=== PATIENT | male | born 2000 | race Caucasian/White ===

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

== ENCOUNTER 2022-05-03 08:13 | Outpatient (CLI) | payer BC, SELFPAY ==
--- NOTE | 2022-05-03 08:31 | ECHO_ITS ---
Patient Info Name: Brant Collins Age: 21 years : 2000 Gender: Male Ht: 70 in Wt: 160 lbs BSA: 1.89 m2 HR: 88 bpm BP: 131 / 80 mmHg Technical Quality: Good Exam Date: 05/03/2022 8:59 AM Exam Location: [facility] Pul[facility] Patient Status: Outpatient Admit Date: 05/03/2022 Staff Ordering Physician: Franny Moore NP Information Officer: Jose L Mcintosh RDCS, RT Attending Provider: Kenji León MD Exam Type: CA echo doppler color flow Study Info Indications I10 - Essential (primary) hypertension Complete two-dimensional, color flow and Doppler transthoracic echocardiogram is performed. Strain analysis performed. Summary 1. Complete two-dimensional, color flow and Doppler transthoracic echocardiogram is performed. 2. Left ventricular chamber dimension is normal. 3. Left ventricular systolic function is normal, estimated at 65-70%. 4. The left ventricular diastolic function is normal. 5. E/e' 5 is not elevated. 6. Global longitudinal strain is mildly abnormal at -16.0%. 7. There is mild mitral valve regurgitation. 8. There is trace tricuspid valve regurgitation. 9. There is trace pulmonic regurgitation. Left Ventricle E/e' 5 is not elevated. Global longitudinal strain is mildly abnormal at -16.0%. Left ventricular chamber dimension is normal. Left ventricular systolic function is normal, estimated at 65-70%. The left ventricular diastolic function is normal. Right Ventricle Right ventricular systolic function is normal and with normal TAPSE 2.1 cm. Right ventricular chamber dimension is normal. Left Atria Left atrial chamber dimension is normal. Right Atria Right atrial chamber dimension is normal. Aortic Valve The aortic valve is trileaflet. There is no aortic valve stenosis. There is no aortic valve regurgitation. Pulmonic Valve There is trace pulmonic regurgitation. Mitral Valve There is no mitral valve stenosis. There is mild mitral valve regurgitation. Tricuspid Valve RVSP is not calculated due to an inadequate TR jet. There is trace tricuspid valve regurgitation. Pericardium/Pleural There is no pericardial effusion. Inferior Vena Cava Normal inferior vena cava with >50% collapse upon inspiration consistent with normal right atrial pressure, 5 mmHg. Aorta The aortic root size at the sinus of Valsalva is normal. Left Ventricular Outflow Tract Name Value Normal LVOT 2D LVOT Diameter 2.0 cm LVOT Doppler LVOT Peak Gradient 3 mmHg LVOT Mean Gradient 2 mmHg LVOT VTI 17 cm LVOT VTI/AV VTI Ratio 0.9 LVOT Stroke Volume 52 ml LVOT CO 4.8 l/min LVOT CI 2.5 l/min/m2 Mitral Valve Name Value Normal MV Doppler
--- NOTE | 2022-05-03 08:31 | ECG_ITS ---
Measurements Intervals Staley Rate: 79 P: 73 MS: 155 QRS: 12 QRSD: 86 T: 67 QT: 334 QTc: 383 Interpretive Statements SINUS RHYTHM WITH SINUS ARRHYTHMIA INCOMPLETE RIGHT BUNDLE BRANCH BLOCK BORDERLINE ECG NO PREVIOUS ECG AVAILABLE FOR COMPARISON Electronically Signed On 05-03-2022 9:55:59 STRUCTURES ENGINEER by Chester Osullivan D.O.
== END 2022-05-03 08:14 | disposition home or self-care (01) ==
LOC: ANHCARD 08:14
PROVIDERS: PCP Family Medicine; Visit Provider Family Medicine
DX: R03.0 Elevated blood-pressure reading, without diagnosis of hypertension (principal); R07.89 Other chest pain; Z82.49 Family history of ischemic heart disease and other diseases of the circulatory system; I45.10 Unspecified right bundle-branch block
CPT/HCPCS: 93005; 93306

== ENCOUNTER 2025-04-18 01:03 | Day surgery (SDC) | payer BC, SELFPAY ==
[2025-04-08 11:48] VITALS: BMI 23.7
[2025-04-18 12:52] VITALS: BP 121/84; PULSE 95; RESP 18; TEMP 36.4; O2SAT 99
[2025-04-18] MEDS: LACTATED RINGERS 1,000 ML 150 ML IV CONT (13:01)
--- NOTE | 2025-04-18 13:25 | P.PNAN_ITS ---
Anes - Initial Pre Proc Eval Procedure: Operation Date: 04/18/25 14:00 Proposed Procedures p Diagnostic Colonoscopy - Jayro Espinoza MD Date/Time: 04/18/25 13:25 Surgeon: Jayro Espinoza MD Pre Op Diagnosis: Unspecified abdominal pain Patient Data Age: 24 Gender: M Height: 1.78 m Weight: 70.8 kg Last Vital Signs Temp 97.6 F 04/18/25 12:52 Pulse 95 04/18/25 12:52 Resp 18 04/18/25 12:52 BP 121/84 04/18/25 12:52 Pulse Ox 99 04/18/25 12:52 O2 Del Method Room Air 04/18/25 12:52 Allergies Allergy/AdvReac Type Severity Reaction Status Date / Time latex Allergy Unknown Dermatitis Verified 04/18/25 12:49 Home Medications ?Medication ?Instructions ?Recorded ?Confirmed ?Type fluticasone propionate 50 1 spray intranasal Q12H #16 grams 10/02/23 04/18/25 Rx mcg/actuation nasal spray,suspension (Flonase Allergy Relief) montelukast 10 mg tablet 10 mg PO DAILY PRN asthma sy mptoms 10/02/23 04/08/25 Rx (Singulair) #30 tabs buspirone 5 mg tablet 5 mg PO BID #60 tabs 4 04/08/25 Rx cetirizine 10 mg tablet (Zyrtec) 10 mg PO BID PRN tammy rgy symptoms 06/26/24 04/08/25 History omeprazole 20 mg capsule,delayed 20 mg PO DAILY #30 ca ps 01/06/25 04/18/25 Rx release dicyclomine 10 mg capsule 10 mg PO TID #90 caps 04/18/25 Rx Patient hx anesthesia problems: none Family hx anesthesia problems: none Results Review: All pre-operative results and documents have been reviewed as part of the pre- operative evaluation. [facility] Past Medical History Medical History Change in stool Intermittent abdominal pain Epididymitis Hand, foot and mouth disease Urticaria (~06/26/24) hives on hands and feet Right testicular pain (~04/22/24) BMI 23.0-23.9, adult Chronic neck pain (~08/2023) left lateral neck pain Vitamin B12 deficiency (05/04/22) level low at 373 with goal greater than 400 with folic acid 20.3 and hemoglobin 15.8 05/04/2022. level low at 308 on 04/26/2024 with hemoglobin 16.4. Cyst of finger GERD (gastroesophageal reflux disease) Hyperlipidemia cholesterol 192, triglycerides 63, HDL 53, LDL 124 with ratio 3.6 05/04/2022. Cholesterol 193, triglycerides 45, HDL 58, LDL 121 with ratio 3.3 on 04/26/2024. Family history of atherosclerosis Tightness in chest Elevated BP without diagnosis of hypertension Anxiety Pharyngitis Acute pain of right wrist Family History Family History Grandparent Diabetes mellitus, Onset Age: 64 Family history of hypercholesterolemia, Onset Age: 64 Hypertension, Onset Age: 64 Family history of cardiovascular disease Family history of chronic obstructive pulmonary disease Carcinoma of colon Mother Family history of hypercholesterolemia Hypertension Patient's mother is in good health Father Hypertension Family history of gastrointestinal disorder Patient's father is in good health Sibling Family history of gastrointestinal disorder Patient's brother is in good health Social History Social History Smoking status: Former smoker Tobacco type: e-cigarettes/vaping Smoking end date: 04/05/22 Alcohol intake: current Drinks per week: 3 Alcohol use details: beer Substance use: never Substance use type: does not use Lack of Transportation: No Lack of Food: Never True Current Housing: I Have Housing Concerned About Future Housing: No Difficulty Paying Gas/Electric Bills: No Difficulty Paying for Meds: No Currently Unemployed: No Education: High School Diploma/GED Difficulty w/ Childcare or Family Care: No Living arrangements: with family Spiritual care concerns: No Anes - Eval Final PreProcedure Day of Procedure 04/18/25 13:25 Patient weight: normal and thin Lungs: normal air movement Airway: Mallampati scale class II Neurological: alert and oriented Last oral intake: >/= 8 hours ASA classification: I Results Review: All pre-operative results and documents have been reviewed as part of the pre- operative evaluation. Informed Consent: The patient's anesthetic plan and its attendant risks and benefits were discussed with the patient/family/POA. Questions were solicited and answers provided to the satisfaction of the patient/family/POA.
--- NOTE | 2025-04-18 13:50 | PM.HPGS ---
History of Present Illness History of Present Illness Consent: Risks, benefits, and alternatives have been discussed and questions answered. Patient agrees to proceed with procedure. Chief complaint: Unspecified abdominal pain Narrative: Brant Collins is a 24 year old male here for first colonoscopy, noted change bowel habits Review of Systems Review of Systems: All systems reviewed & are unremarkable except as noted in HPI and below PMFSH Past Medical History Medical History Change in stool Intermittent abdominal pain Epididymitis Hand, foot and mouth disease Urticaria (~06/26/24) hives on hands and feet Right testicular pain (~04/22/24) BMI 23.0-23.9, adult Chronic neck pain (~08/2023) left lateral neck pain Vitamin B12 deficiency (05/04/22) level low at 373 with goal greater than 400 with folic acid 20.3 and hemoglobin 15.8 05/04/2022. level low at 308 on 04/26/2024 with hemoglobin 16.4. Cyst of finger GERD (gastroesophageal reflux disease) Hyperlipidemia cholesterol 192, triglycerides 63, HDL 53, LDL 124 with ratio 3.6 05/04/2022. Cholesterol 193, triglycerides 45, HDL 58, LDL 121 with ratio 3.3 on 04/26/2024. Family history of atherosclerosis Tightness in chest Elevated BP without diagnosis of hypertension Anxiety Pharyngitis Acute pain of right wrist Family History Family History Grandparent Diabetes mellitus, Onset Age: 64 Family history of hypercholesterolemia, Onset Age: 64 Hypertension, Onset Age: 64 Family history of cardiovascular disease Family history of chronic obstructive pulmonary disease Carcinoma of colon Mother Family history of hypercholesterolemia Hypertension Patient's mother is in good health Father Hypertension Family history of gastrointestinal disorder Patient's father is in good health Sibling Family history of gastrointestinal disorder Patient's brother is in good health Social History Social History Smoking status: Former smoker Tobacco type: e-cigarettes/vaping Smoking end date: 04/05/22 Alcohol intake: current Drinks per week: 3 Alcohol use details: beer Substance use: never Substance use type: does not use Lack of Transportation: No Lack of Food: Never True Current Housing: I Have Housing Concerned About Future Housing: No Difficulty Paying Gas/Electric Bills: No Difficulty Paying for Meds: No Currently Unemployed: No Education: High School Diploma/GED Difficulty w/ Childcare or Family Care: No Living arrangements: with family Spiritual care concerns: No Meds Home Medications and Allergies Home Medications ?Medication ?Instructions ?Recorded ?Confirmed ?Type fluticasone propionate 50 1 spray intranasal Q12H #16 grams 10/02/23 04/18/25 Rx mcg/actuation nasal spray,suspension (Flonase Allergy Relief) montelukast 10 mg tablet 10 mg PO DAILY PRN asthma symptoms 10/02/23 04/08/25 Rx (Singulair) #30 tabs buspirone 5 mg tablet 5 mg PO BID #60 tabs 04/19/24 04/08/25 Rx cetirizine 10 mg tablet (Zyrtec) 10 mg PO BID PRN allergy symptoms 06/26/24 04/08/25 History omeprazole 20 mg capsule,delayed 20 mg PO DAILY #30 caps 01/06/25 04/18/25 Rx release dicyclomine 10 mg capsule 10 mg PO TID #90 caps 02/21/25 04/18/25 Rx Allergies Allergy/AdvReac Type Severity Reaction Status Date / Time latex Allergy Unknown Dermatitis Verified 04/18/25 12:49 Vital Signs Vital Signs - 24 hr 04/18/25 12:52 Temperature 97.6 F Pulse Rate 95 Respiratory Rate 18 Blood Pressure 121/84 Pulse Oximetry 99 Oxygen Delivery Room Air Exam Const: General: comfortable and no acute distress HENMT: Face/Nose/Sinus: Normal nares present Eyes: General: appearance normal, both eyes and all related structures Neck: Neck: no JVD Resp: Auscultation: clear to auscultation bilaterally Cardio: Rate: regular rate Rhythm: regular rhythm GI: Inspection: non-distended GI Palp: Yes Soft to palpation Skin: General skin exam: normal color Extrem: General: normal to inspection Psych: Mental Status: mental status grossly normal Assessment and Plan Assessment and plan (1) Change in stool: Code(s): R19.5 - Other fecal abnormalities Status: Acute Assessment and Plan: colonoscopy
[2025-04-18 14:04] VITALS: BP 119/79; PULSE 86; RESP 20; O2SAT 98
[2025-04-18 14:14] VITALS: BP 102/56; PULSE 86; RESP 17; O2SAT 97
[2025-04-18 14:24] VITALS: BP 109/62; PULSE 85; RESP 21; O2SAT 100
== END 2025-04-18 14:35 | disposition home or self-care (01) ==
PROVIDERS: PCP Nurse Practitioner Family; Referring Provider Nurse Practitioner Family; Visit Provider Internal Medicine Gastroenterology
PROC: 0DJD8ZZ Inspection of Lower Intestinal Tract, Via Natural or Artificial Opening Endoscopic (ICD-10-PCS; CPT 45378; principal; 2025-04-18 14:00)
DX: R19.5 Other fecal abnormalities (principal); K64.8 Other hemorrhoids; E78.5 Hyperlipidemia, unspecified; E53.8 Deficiency of other specified B group vitamins; K21.9 Gastro-esophageal reflux disease without esophagitis; F41.9 Anxiety disorder, unspecified; R03.0 Elevated blood-pressure reading, without diagnosis of hypertension; G89.29 Other chronic pain; M54.2 Cervicalgia; Z87.891 Personal history of nicotine dependence; Z80.0 Family history of malignant neoplasm of digestive organs; Z82.49 Family history of ischemic heart disease and other diseases of the circulatory system
CPT/HCPCS: 45378; J2003; J2704; J7120